=== PATIENT | female | born 1930 | race Caucasian/White ===

== ENCOUNTER 2018-02-10 11:15 | Outpatient (CLI) | payer MEDICARE, BC ==
--- NOTE | 2018-02-10 13:40 | RAD ---
CHEST TWO VIEWS: History: Chest pain. FINDINGS: No comparison. Cardiac silhouette and pulmonary vasculature are unremarkable. Mediastinum is midline with aortic shay cification. Lungs are hyperinflated with linear scarring at the basis. No lobar consolidation, pneumo thorax, or pleural fluid. Partial compression of a mid and lower thoracic vertebral body on the later al view. Osseous structures are demineralized. IMPRESSION: 1. COPD. 2. Atherosclerosis. 3. Osteoporosis. Partial compression of two mid and lower thoracic vertebral bodies. POS: [facility]
--- NOTE | 2018-02-10 13:56 | RAD ---
LUMBAR SPINE THREE VIEWS: HISTORY: Fall in December. Pain. COMPARISON: None. FINDINGS: Five lumbar type vertebral bodies. Moderate loss of vertebral body height at T12. Mild loss of vert ebral body height at L1. No additional lumbar spine fractures. Vacuum disk phenomenon at the lumbos acral junction. Atherosclerosis of the aorta is noted. IMPRESSION: Moderate and mild compression fractures, as described above. Sclerosis implies a chronic process. C orrelate clinically. MRI if there is concern for acute fracture. POS: JULIETA
--- NOTE | 2018-02-10 13:59 | RAD ---
RADIOGRAPH THORACIC SPINE THREE VIEWS: 02/10/2018 HISTORY: An 87-year-old female with persistent mid back pain after a fall in December. COMPARISON: None available FINDINGS: Burst fracture of T12 with severe anterior wedging and a maximum of approximately 75% loss of height, plus bony retropulsion. Inferior to this, there is a compression fracture with deep, broad indentation of the inferior endpla te of L1. Compression fracture of T9, with approximately 30% loss of height. Diffuse osteopenia. IMPRESSION: 1. Several compression fractures, including at least one burst fracture, of the thoracic spine and t he lumbar spine, of indeterminate ages. 2. Osteopenia. POS: [facility]
== END 2018-02-10 11:16 | disposition home or self-care (01) ==
LOC: MADRAD 11:15
PROVIDERS: ATTEND Obstetrics & Gynecology
DX: R07.1 Chest pain on breathing (principal); M81.0 Age-related osteoporosis without current pathological fracture; M85.80 Other specified disorders of bone density and structure, unspecified site; J44.9 Chronic obstructive pulmonary disease, unspecified; I70.90 Unspecified atherosclerosis
CPT/HCPCS: 71046; 72072; 72100